=== PATIENT | female | born 1985 | race Hispanic/Latino ===

== ENCOUNTER 2017-12-24 09:48 | Emergency (ER) | payer SELFPAY | END 2017-12-24 10:13 | disposition home or self-care (01) | LOC: EDH 09:48 | DX: H10.89 Other conjunctivitis (principal); R03.0 Elevated blood-pressure reading, without diagnosis of hypertension; Z88.6 Allergy status to analgesic agent ==

== ENCOUNTER 2018-01-28 21:51 | Emergency (ER) | payer OTHER ==
[2018-01-28 22:55] LABS: BASOPHILS % (AUTO) 0.9 % (0.0-5.0); EOSINOPHILS % (AUTO) 2.7 % (0.0-8.0); HEMATOCRIT 39.7 % (36-48); LYMPHOCYTES % (AUTO) 32.9 % (21.0-51.0); MEAN CORPUSCULAR HEMOGLOBIN 29.5 pg (27.0-33.0); MEAN CORPUSCULAR HGB CONC 34.9 g/dL (32.0-36.0); MEAN CORPUSCULAR VOLUME 84.4 fL (79-99); MONOCYTES % (AUTO) 4.4 % (3.0-13.0); NEUTROPHILS % (AUTO) 59.1 % (40.0-77.0); PLATELET COUNT (AUTO) 295 K/uL (130-400); RED CELL DISTRIBUTION WIDTH 13.4 % (11.0-15.5); WHITE BLOOD COUNT (AUTO) 10.2 K/uL (4.8-10.8)
[2018-01-28] MEDS ORDERED: DEXAMETHASONE SOD PHOSPHATE 10MG/ML 1ML VIAL ONE (22:57)
[2018-01-28] MEDS ORDERED: KETOROLAC TROMETHAMINE 30MG/ML ONE (22:58)
[2018-01-28 23:10] LABS: CREATININE 0.8 mg/dL (0.5-1.5); CRP QUANTITATIVE 16.4 mg/L (0.00-9.0); POTASSIUM 3.5 mmol/L (3.5-5.1)
[2018-01-29 00:16] LABS: ERYTHROCYTE SEDIMENTATION RATE 10 MM/HR (0-15)
== END 2018-01-29 00:21 | disposition home or self-care (01) ==
LOC: EDH 21:51
DX: M79.642 Pain in left hand (principal); M79.641 Pain in right hand; Z88.6 Allergy status to analgesic agent; Z90.710 Acquired absence of both cervix and uterus
CPT/HCPCS: 36415; 80048; 84550; 85025; 85651; 86140; 96372 ×2; 99284; J1100; J1885

== ENCOUNTER 2019-09-23 18:41 | Emergency (ER) | payer OTHER | END 2019-09-23 21:07 | disposition home or self-care (01) | LOC: EDH 18:41 | DX: R07.89 Other chest pain (principal); M94.0 Chondrocostal junction syndrome [Tietze]; Z88.5 Allergy status to narcotic agent; Z90.710 Acquired absence of both cervix and uterus; Z87.891 Personal history of nicotine dependence | CPT/HCPCS: 36415; 71046; 84484; 85378; 93005 ==

== ENCOUNTER 2019-10-19 16:22 | Emergency (ER) | payer OTHER ==
[2019-10-19] MEDS ORDERED: LIDOCAINE 5% TOPICAL PATCH TP ONE (16:46)
[2019-10-19] MEDS ORDERED: KETOROLAC TROMETHAMINE 60 MG/2 ML VIAL ONE (16:46)
[2019-10-19] MEDS ORDERED: DIAZEPAM 5 MG TABLET ONE (16:47)
== END 2019-10-19 17:55 | disposition home or self-care (01) ==
LOC: EDH 16:22
DX: M54.16 Radiculopathy, lumbar region (principal); Z90.710 Acquired absence of both cervix and uterus; Z88.6 Allergy status to analgesic agent; Z87.891 Personal history of nicotine dependence
CPT/HCPCS: 96372; 99283; J1885

== ENCOUNTER 2020-01-29 07:29 | Emergency (ER) | payer BC ==
[2020-01-29 08:41] LABS: APPEARANCE,URINE Clear (CLEAR); BILIRUBIN,URINE Negative (NEGATIVE); COLOR,URINE Yellow (YELLOW); GLUCOSE, URINE (UA) Negative (NEGATIVE); KETONES,URINE Negative (NEGATIVE); LEUKOCYTE ESTERASE ,URINE Negative (NEGATIVE); NITRATE,URINE Negative (NEGATIVE); OCCULT BLOOD,URINE Negative (NEGATIVE); PH,URINE 6.5 (5.0-8.0); PROTEIN,URINE Negative (NEGATIVE); UROBILINOGEN,URINE 0.2 mg/dL (0.2-1.0)
[2020-01-29 08:48] LABS: HCG,QUAL RESULT NEGATIVE (NEGATIVE)
[2020-01-29] MEDS ORDERED: CEFTRIAXONE SODIUM 500 MG VIAL ONE (09:34)
[2020-01-29] MEDS ORDERED: LIDOCAINE HCL-MPF 1% 2ML VIAL ONE (09:34)
[2020-01-29] MEDS ORDERED: AZITHROMYCIN 250 MG TABLET PO ONE (09:35)
== END 2020-01-29 10:04 | disposition home or self-care (01) ==
LOC: EDH 07:29
DX: R30.0 Dysuria (principal); Z88.6 Allergy status to analgesic agent; Z90.49 Acquired absence of other specified parts of digestive tract; Z90.710 Acquired absence of both cervix and uterus
CPT/HCPCS: 81003; 81025; 87486; 87797; 96372; 99284; J0696; J3490

== ENCOUNTER 2020-05-24 14:41 | Emergency (ER) | payer BC | END 2020-05-24 16:31 | disposition home or self-care (01) | LOC: EDH 14:41 | DX: H65.01 Acute serous otitis media, right ear (principal); Z90.49 Acquired absence of other specified parts of digestive tract; Z90.710 Acquired absence of both cervix and uterus; Z98.890 Other specified postprocedural states; Z88.5 Allergy status to narcotic agent; Z91.040 Latex allergy status | CPT/HCPCS: 99281 ==

== ENCOUNTER 2021-05-28 18:34 | Emergency (ER) | payer BC, MEDICAID ==
[~2021-05-28] VITALS: Ht 157.5 cm; Wt 122.5 kg
[2021-05-28 18:46] VITALS: BP 140/95
[2021-05-28] MEDS ORDERED: ORPHENADRINE CITRATE 30 MG/ML ML IM ONE (19:00)
[2021-05-28] MEDS ORDERED: KETOROLAC 30MG VIAL (30MG/ML) IM ONE (19:00)
[2021-05-28 19:23] VITALS: BP 111/70
[2021-05-28] MEDS ORDERED: IBUP-2070 PO (19:49)
[2021-05-28] MEDS ORDERED: ORPH-43 PO (19:49)
== END 2021-05-28 20:17 | disposition home or self-care (01) ==
LOC: EDH 18:34
DX: S39.011A Strain of muscle, fascia and tendon of abdomen, initial encounter (principal); Z79.1 Long term (current) use of non-steroidal anti-inflammatories (NSAID); Z88.5 Allergy status to narcotic agent; Z91.040 Latex allergy status; X58.XXXA Exposure to other specified factors, initial encounter; Y93.89 Activity, other specified; Y92.89 Other specified places as the place of occurrence of the external cause; Y99.8 Other external cause status
CPT/HCPCS: 73502; 96372 ×2; 99284; J1885; J2360

== ENCOUNTER 2021-08-01 08:50 | Emergency (ER) | payer MEDICAID ==
[~2021-08-01] VITALS: Ht 157.5 cm; Wt 126.1 kg
[~2021-08-01 08:50] MED LIST: IBUP-2070 PO; ORPH-43 PO
[2021-08-01 09:02] VITALS: BP 147/100
[2021-08-01] MEDS ORDERED: ACETAMINOPHEN 500 MG TABLET PO ONE (09:30)
[2021-08-01 10:03] LABS: APPEARANCE,URINE Clear (CLEAR); BILIRUBIN,URINE Negative (NEGATIVE); COLOR,URINE Yellow (YELLOW); GLUCOSE, URINE (UA) Negative (NEGATIVE); KETONES,URINE Negative (NEGATIVE); LEUKOCYTE ESTERASE ,URINE Negative (NEGATIVE); NITRATE,URINE Negative (NEGATIVE); OCCULT BLOOD,URINE Negative (NEGATIVE); PH,URINE 7.5 (5.0-8.0); PROTEIN,URINE Negative (NEGATIVE); UROBILINOGEN,URINE 0.2 mg/dL (0.2-1.0)
[2021-08-01 10:14] LABS: AMPHET/METH SCREEN,URINE NEGATIVE (NEGATIVE); BARBITURATE SCREEN, URINE NEGATIVE (NEGATIVE); BENZODIAZEPINES SCREEN,URINE NEGATIVE (NEGATIVE); CANNABINOID SCREEN,URINE NEGATIVE (NEGATIVE); COCAINE SCREEN,URINE NEGATIVE (NEGATIVE); HCG,QUAL RESULT NEGATIVE (NEGATIVE); OPIATE SCREEN,URINE NEGATIVE (NEGATIVE); PHENCYCLIDINE SCREEN,URINE NEGATIVE (NEGATIVE)
[2021-08-01] MEDS ORDERED: CEPH500B PO (10:22)
== END 2021-08-01 10:39 | disposition home or self-care (01) ==
LOC: EDH 08:50
DX: N39.0 Urinary tract infection, site not specified (principal); F90.9 Attention-deficit hyperactivity disorder, unspecified type; Z88.5 Allergy status to narcotic agent; Z91.040 Latex allergy status; Z79.1 Long term (current) use of non-steroidal anti-inflammatories (NSAID)
CPT/HCPCS: 80305; 81003; 81025; 87077; 87088; 87186

== ENCOUNTER 2021-11-18 09:19 | Emergency (ER) | payer MEDICAID ==
[~2021-11-18] VITALS: Ht 157.5 cm; Wt 123.4 kg
[~2021-11-18 09:19] MED LIST changes: +CEPH500B PO
[2021-11-18 09:55] LABS: MEAN CORPUSCULAR HEMOGLOBIN 28.3 pg (27.0-33.0); MEAN CORPUSCULAR HGB CONC 33.3 g/dL (32.0-36.0); PLATELET COUNT (AUTO) 285 K/uL (130-400); RED BLOOD CELL COUNT(AUTO) 5.06 MIL/uL (4.00-5.50); RED CELL DISTRIBUTION WIDTH 13.2 % (11.0-15.5)
[2021-11-18 10:07] LABS: CREATININE 0.8 mg/dL (0.5-1.5); POTASSIUM 4.2 mmol/L (3.5-5.1)
[2021-11-18 10:10] LABS: APPEARANCE,URINE Clear (CLEAR); BILIRUBIN,URINE Negative (NEGATIVE); COLOR,URINE Yellow (YELLOW); GLUCOSE, URINE (UA) Negative (NEGATIVE); KETONES,URINE Negative (NEGATIVE); LEUKOCYTE ESTERASE ,URINE Small (NEGATIVE); NITRATE,URINE Negative (NEGATIVE); OCCULT BLOOD,URINE Negative (NEGATIVE); PROTEIN,URINE Negative (NEGATIVE); UROBILINOGEN,URINE 0.2 mg/dL (0.2-1.0)
[2021-11-18 10:12] LABS: ALBUMIN 3.4 g/dL (3.5-5.0); TOTAL PROTEIN, SERUM 6.8 g/dL (6.0-8.3)
[2021-11-18 10:23] LABS: BASOPHILS % (MANUAL) 2 % (0-2); EOSINOPHILS % (MANUAL) 1 % (1-6); LYMPHOCYTES % (MANUAL) 18 % (22-44); MAN.DIFF COMMENT-IMPRESSION MANUAL DIFFERENTIAL; MONOCYTES % (MANUAL) 2 % (2-9); PLATELET MORPHOLOGY COMMENT ADEQUATE; REACTIVE LYMPHOCYTES 3 % (0-0); SEGMENTED NEUTROPHILS % 74 % (40-70)
[2021-11-18 10:24] LABS: BACTERIA,URINE Few /HPF (None Seen); RBC,URINE 0-1 /HPF (0-1); TRICHOMONAS,URINE Few /LPF (None Seen)
[2021-11-18 10:25] LABS: SQUAMOUS EPITHELIAL CELL,UR Few /HPF (0-2)
[2021-11-18] MEDS ORDERED: CLOT45CR23 VG (14:16)
[2021-11-18] MEDS ORDERED: ONDANSETRON ODT 4MG TAB SL ONE (14:30)
[2021-11-18] MEDS: METRONIDAZOLE 500 MG TABLET PO SCH (14:30)
[2021-11-18 14:45] VITALS: BP 158/74
== END 2021-11-18 14:45 | disposition home or self-care (01) ==
LOC: EDH 09:19
DX: A59.01 Trichomonal vulvovaginitis (principal); B37.3 Candidiasis of vulva and vagina; R03.0 Elevated blood-pressure reading, without diagnosis of hypertension; Z88.5 Allergy status to narcotic agent; Z90.710 Acquired absence of both cervix and uterus; Z91.040 Latex allergy status; Z79.1 Long term (current) use of non-steroidal anti-inflammatories (NSAID)
CPT/HCPCS: 36415; 80053; 81001; 85025; 87210; 87486; 87797

== ENCOUNTER 2021-12-15 12:30 | Emergency (ER) | payer MEDICAID ==
[~2021-12-15] VITALS: Ht 157.5 cm; Wt 121.6 kg
[~2021-12-15 12:30] MED LIST changes: +CLOT45CR23 VG
[2021-12-15 12:53] LABS: APPEARANCE,URINE Cloudy (CLEAR); BILIRUBIN,URINE Negative (NEGATIVE); COLOR,URINE Yellow (YELLOW); GLUCOSE, URINE (UA) Negative (NEGATIVE); KETONES,URINE Negative (NEGATIVE); LEUKOCYTE ESTERASE ,URINE Large (NEGATIVE); NITRATE,URINE Negative (NEGATIVE); OCCULT BLOOD,URINE Small (NEGATIVE); PH,URINE 6.5 (5.0-8.0); PROTEIN,URINE POS 2+ mg/dL (NEGATIVE); UROBILINOGEN,URINE 0.2 mg/dL (0.2-1.0)
[2021-12-15 12:54] VITALS: BP 129/84
[2021-12-15] MEDS ORDERED: ONDANSETRON 4MG INJ IVP ONE (13:00)
[2021-12-15] MEDS ORDERED: 0.9%NACL 1000ML 1,000 ML IV ONE (13:00)
[2021-12-15 13:03] LABS: BACTERIA,URINE Rare /HPF (None Seen); SQUAMOUS EPITHELIAL CELL,UR Few /HPF (0-2); WBC,URINE >100 /HPF (0-1)
[2021-12-15 13:17] LABS: BASOPHILS % (AUTO) 0.5 % (0.0-5.0); EOSINOPHILS % (AUTO) 1.6 % (0.0-8.0); HEMATOCRIT 40.3 % (36-48); LYMPHOCYTES % (AUTO) 19.6 % (21.0-51.0); MEAN CORPUSCULAR HEMOGLOBIN 28.8 pg (27.0-33.0); MEAN CORPUSCULAR VOLUME 82.2 fL (79-99); MONOCYTES % (AUTO) 3.9 % (3.0-13.0); PLATELET COUNT (AUTO) 274 K/uL (130-400); RED CELL DISTRIBUTION WIDTH 13.2 % (11.0-15.5); WHITE BLOOD COUNT (AUTO) 10.4 K/uL (4.8-10.8)
[2021-12-15 13:21] LABS: CREATININE 0.8 mg/dL (0.5-1.5); POTASSIUM 3.7 mmol/L (3.5-5.1)
[2021-12-15 13:25] LABS: ALBUMIN 3.1 g/dL (3.5-5.0); BILIRUBIN,TOTAL 0.6 mg/dL (0.2-1.0); TOTAL PROTEIN, SERUM 6.3 g/dL (6.0-8.3)
[2021-12-15] MEDS ORDERED: CEFTRIAXONE 1G VIAL IVP SCH (13:30)
[2021-12-15] MEDS ORDERED: ONDA4TAB10 PO (13:49)
[2021-12-15] MEDS ORDERED: LACT10PA5 PO (13:49)
[2021-12-15] MEDS ORDERED: CEPH500B PO (13:49)
[2021-12-15] MEDS ORDERED: PHEN-847 PO (13:49)
== END 2021-12-15 14:09 | disposition home or self-care (01) ==
LOC: EDH 12:30
DX: N39.0 Urinary tract infection, site not specified (principal); N83.202 Unspecified ovarian cyst, left side; K59.00 Constipation, unspecified; R11.2 Nausea with vomiting, unspecified; E66.9 Obesity, unspecified; Z88.5 Allergy status to narcotic agent; Z90.49 Acquired absence of other specified parts of digestive tract; Z90.721 Acquired absence of ovaries, unilateral; Z91.040 Latex allergy status; Z79.1 Long term (current) use of non-steroidal anti-inflammatories (NSAID); Z68.42 Body mass index [BMI] 45.0-49.9, adult
CPT/HCPCS: 36415; 71045; 74176; 80053; 81001; 83690; 85025; 87077; 87088; 87186; 96374; 96375; 99285; J0696; J2405; J7030

== ENCOUNTER 2022-06-23 14:54 | Emergency (ER) | payer MEDICAID ==
[~2022-06-23] VITALS: Ht 157.5 cm; Wt 118.8 kg
[~2022-06-23 14:54] MED LIST changes: +LACT10PA5 PO; +ONDA4TAB10 PO; +PHEN-847 PO
[2022-06-23] MEDS ORDERED: SULF1TAB42 PO (15:34)
[2022-06-23] MEDS ORDERED: DOXY-252 PO (15:34)
[2022-06-23] MEDS ORDERED: IBUP-1493 PO (15:35)
[2022-06-23 16:08] VITALS: BP 138/68
== END 2022-06-23 16:12 | disposition home or self-care (01) ==
LOC: EDH 14:54
DX: L03.116 Cellulitis of left lower limb (principal); F90.9 Attention-deficit hyperactivity disorder, unspecified type; Z98.890 Other specified postprocedural states; Z79.899 Other long term (current) drug therapy; Z91.040 Latex allergy status; Z88.5 Allergy status to narcotic agent; Z88.8 Allergy status to other drugs, medicaments and biological substances

== ENCOUNTER 2022-11-26 21:09 | Emergency (ER) | payer MEDICAID ==
[~2022-11-26] VITALS: Ht 157.5 cm; Wt 118.2 kg
[~2022-11-26 21:09] MED LIST changes: +DOXY-252 PO; +IBUP-1493 PO; +SULF1TAB42 PO
[2022-11-26 21:42] LABS: APPEARANCE,URINE CLEAR (CLEAR); BILIRUBIN,URINE NEGATIVE (NEGATIVE); COLOR,URINE COLORLESS (YELLOW); GLUCOSE, URINE (UA) NEGATIVE (NEGATIVE); KETONES,URINE NEGATIVE (NEGATIVE); LEUKOCYTE ESTERASE ,URINE NEGATIVE Leu/uL (NEGATIVE); NITRATE,URINE NEGATIVE (NEGATIVE); OCCULT BLOOD,URINE NEGATIVE (NEGATIVE); PROTEIN,URINE NEGATIVE (NEGATIVE); UROBILINOGEN,URINE 0.2 mg/dL (0.2-1.0)
[2022-11-26 21:50] LABS: BACTERIA,URINE RARE /HPF (None Seen); RBC,URINE 0-1 /HPF (0-1); SQUAMOUS EPITHELIAL CELL,UR RARE /HPF (0-2); WBC,URINE 0-1 /HPF (0-1)
[2022-11-26] MEDS ORDERED: KETOROLAC 30MG VIAL (30MG/ML) IVP ONE (22:30)
[2022-11-26] MEDS ORDERED: CYCL-309 PO (23:24)
[2022-11-26] MEDS ORDERED: IBUP-1493 PO (23:24)
[2022-11-27 00:29] VITALS: BP 112/48
== END 2022-11-27 00:47 | disposition home or self-care (01) ==
LOC: EDH 21:09
DX: R10.9 Unspecified abdominal pain (principal); E66.9 Obesity, unspecified; Z79.1 Long term (current) use of non-steroidal anti-inflammatories (NSAID); Z88.5 Allergy status to narcotic agent; Z91.040 Latex allergy status; Z90.710 Acquired absence of both cervix and uterus; Z68.42 Body mass index [BMI] 45.0-49.9, adult
CPT/HCPCS: 99285; 74176; 96374; 81001; 81025; J1885

== ENCOUNTER 2022-12-21 14:08 | Emergency (ER) | payer MEDICAID ==
[~2022-12-21] VITALS: Ht 157.5 cm; Wt 117.9 kg
[~2022-12-21 14:08] MED LIST changes: -CEPH500B PO; -CLOT45CR23 VG; +CYCL-309 PO; -DOXY-252 PO; -IBUP-2070 PO; -LACT10PA5 PO; -ONDA4TAB10 PO; -ORPH-43 PO; -PHEN-847 PO; -SULF1TAB42 PO
[2022-12-21 14:41] LABS: BASOPHILS % (AUTO) 0.1 % (0.0-5.0); EOSINOPHILS % (AUTO) 1.6 % (0.0-8.0); HEMATOCRIT 44.4 % (36-48); MEAN CORPUSCULAR HEMOGLOBIN 28.1 pg (27.0-33.0); MEAN CORPUSCULAR HGB CONC 34.2 g/dL (32.0-36.0); MEAN CORPUSCULAR VOLUME 82.1 fL (79-99); MONOCYTES % (AUTO) 3.9 % (3.0-13.0); NEUTROPHILS % (AUTO) 82.1 % (40.0-77.0); PLATELET COUNT (AUTO) 294 K/uL (130-400); RED BLOOD CELL COUNT(AUTO) 5.41 MIL/uL (4.00-5.50); RED CELL DISTRIBUTION WIDTH 12.6 % (11.0-15.5); WHITE BLOOD COUNT (AUTO) 7.6 K/uL (4.8-10.8)
[2022-12-21 14:47] LABS: HCG,QUALITATIVE URINE NEGATIVE (NEGATIVE)
[2022-12-21 14:55] LABS: CREATININE 0.7 mg/dL (0.5-1.5); POTASSIUM 3.7 mmol/L (3.5-5.1)
[2022-12-21 14:59] LABS: ALBUMIN 3.4 g/dL (3.5-5.0); TOTAL PROTEIN, SERUM 7.1 g/dL (6.0-8.3)
[2022-12-21 15:18] LABS: APPEARANCE,URINE CLEAR (CLEAR); BILIRUBIN,URINE NEGATIVE (NEGATIVE); COLOR,URINE LIGHT-YELLOW (YELLOW); GLUCOSE, URINE (UA) NEGATIVE (NEGATIVE); KETONES,URINE NEGATIVE (NEGATIVE); LEUKOCYTE ESTERASE ,URINE NEGATIVE Leu/uL (NEGATIVE); NITRATE,URINE NEGATIVE (NEGATIVE); OCCULT BLOOD,URINE NEGATIVE (NEGATIVE); PH,URINE 6.5 (5.0-8.0); PROTEIN,URINE NEGATIVE (NEGATIVE); UROBILINOGEN,URINE 0.2 mg/dL (0.2-1.0)
[2022-12-21 15:24] LABS: BACTERIA,URINE FEW /HPF (None Seen); RBC,URINE 0-1 /HPF (0-1); SQUAMOUS EPITHELIAL CELL,UR RARE /HPF (0-2); WBC,URINE 0-1 /HPF (0-1)
[2022-12-21] MEDS ORDERED: MAG/ALUM/SIMETH 30 ML UDCUP ONE (17:32)
[2022-12-21] MEDS ORDERED: LIDOCAINE HCL 2% VISCOUS 15 ML UDCUP ONE (17:32)
[2022-12-21 18:00] VITALS: BP 109/51
[2022-12-21] MEDS ORDERED: MAG/ALUM/SIMETH 30 ML UDCUP PO ONE (18:00)
[2022-12-21] MEDS ORDERED: DICYCLOMINE HCL 10 MG/5 ML ML PO ONE (18:00)
[2022-12-21] MEDS ORDERED: LIDOCAINE HCL 2% VISCOUS 15 ML UDCUP PO ONE (18:00)
== END 2022-12-21 18:20 | disposition home or self-care (01) ==
LOC: EDH 14:08
DX: K52.9 Noninfective gastroenteritis and colitis, unspecified (principal); Z90.710 Acquired absence of both cervix and uterus
CPT/HCPCS: 36415; 74018; 80053; 81001; 81025; 83690; 85025

== ENCOUNTER 2023-05-16 10:41 | Emergency (ER) | payer MEDICAID, OTHER ==
[~2023-05-16] VITALS: Ht 157.5 cm; Wt 122.5 kg
[2023-05-16 10:55] VITALS: BP 175/96; PULSE 85; RESP 16
[2023-05-16 12:15] LABS: SARS-CoV-2, RNA, NAAT NEGATIVE SARS CoV-2 (NEGATIVE)
[2023-05-16 12:21] LABS: INFLUENZA TYPE A Negative For Type A (NEGATIVE); INFLUENZA TYPE B Negative For Type B (NEGATIVE)
[2023-05-17] MEDS ORDERED: SUMA25TA25 PO (12:40)
[2023-05-17] MEDS ORDERED: METO-296 PO (12:40)
== END 2023-05-16 14:09 | disposition left against medical advice (07) ==
LOC: EDH 10:41
DX: R51.9 Headache, unspecified (principal); Z20.822 Contact with and (suspected) exposure to COVID-19; Z53.21 Procedure and treatment not carried out due to patient leaving prior to being seen by health care provider
CPT/HCPCS: 99281; 87635; 87804 ×2; C9803

== ENCOUNTER 2023-05-17 08:47 | Emergency (ER) | payer OTHER ==
[~2023-05-17] VITALS: Ht 157.5 cm; Wt 124.7 kg
[2023-05-17] MEDS ORDERED: KETOROLAC 30MG VIAL (30MG/ML) IVP ONE (09:30)
[2023-05-17] MEDS ORDERED: FAMOTIDINE 20MG VIAL IV ONE (09:30)
[2023-05-17] MEDS ORDERED: DEXAMETHASONE SOD PHOSPHATE 4 MG/ML 1ML VIAL IV ONE (09:30)
[2023-05-17] MEDS ORDERED: METOCLOPRAMIDE 10 MG/2 ML VIAL IVP ONE (09:30)
[2023-05-17 09:56] LABS: BASOPHILS # (AUTO) 0.02 K/uL (0.00-0.20); BASOPHILS % (AUTO) 0.3 % (0.0-5.0); EOSINOPHILS # (AUTO) 0.12 K/uL (0.00-0.70); EOSINOPHILS % (AUTO) 1.5 % (0.0-8.0); HEMATOCRIT 43.6 % (36-48); IMMATURE GRANULOCYTE ABSOLUTE 0.04 K/uL (0-1); MEAN CORPUSCULAR HEMOGLOBIN 28.4 pg (27.0-33.0); MEAN CORPUSCULAR HGB CONC 33.7 g/dL (32.0-36.0); MEAN CORPUSCULAR VOLUME 84.2 fL (79-99); MONOCYTES # (AUTO) 0.3 K/uL (0.1-1.0); MONOCYTES % (AUTO) 3.3 % (3.0-13.0); NEUTROPHILS # (AUTO) 5.3 K/uL (1.8-7.7); NEUTROPHILS % (AUTO) 68.4 % (40.0-77.0); PLATELET COUNT (AUTO) 295 K/uL (130-400); RED BLOOD CELL COUNT(AUTO) 5.18 MIL/uL (4.00-5.50); RED CELL DISTRIBUTION WIDTH 12.5 % (11.0-15.5); WHITE BLOOD COUNT (AUTO) 7.8 K/uL (4.8-10.8)
[2023-05-17 10:07] LABS: CREATININE 0.7 mg/dL (0.5-1.5); POTASSIUM 3.9 mmol/L (3.5-5.1)
[2023-05-17 10:22] LABS: MAGNESIUM 1.7 mg/dL (1.80-2.40); THYROID STIMULATING HORMONE 2.08 uIU/mL (0.36-3.74)
[2023-05-17 10:33] LABS: AMPHET/METH SCREEN,URINE NEGATIVE (NEGATIVE); BARBITURATE SCREEN, URINE NEGATIVE (NEGATIVE); BENZODIAZEPINES SCREEN,URINE NEGATIVE (NEGATIVE); CANNABINOID SCREEN,URINE NEGATIVE (NEGATIVE); COCAINE SCREEN,URINE NEGATIVE (NEGATIVE); OPIATE SCREEN,URINE NEGATIVE (NEGATIVE); PHENCYCLIDINE SCREEN,URINE NEGATIVE (NEGATIVE)
[2023-05-17 10:41] LABS: APPEARANCE,URINE CLEAR (CLEAR); BILIRUBIN,URINE NEGATIVE (NEGATIVE); COLOR,URINE COLORLESS (YELLOW); GLUCOSE, URINE (UA) NEGATIVE (NEGATIVE); KETONES,URINE NEGATIVE (NEGATIVE); LEUKOCYTE ESTERASE ,URINE NEGATIVE Leu/uL (NEGATIVE); NITRATE,URINE NEGATIVE (NEGATIVE); OCCULT BLOOD,URINE NEGATIVE (NEGATIVE); PH,URINE 6.5 (5.0-8.0); PROTEIN,URINE NEGATIVE (NEGATIVE); UROBILINOGEN,URINE 0.2 mg/dL (0.2-1.0)
[2023-05-17 10:46] LABS: ADD UA MICROSCOPIC NO
[2023-05-17] MEDS ORDERED: MAGNESIUM OXIDE 400 MG TABLET PO ONE (12:30)
[2023-05-17] MEDS ORDERED: METO-296 PO (12:40)
[2023-05-17] MEDS ORDERED: SUMA25TA25 PO (12:40)
[2023-05-17 12:42] VITALS: BP 121/72; PULSE 72; RESP 18; O2SAT 99
== END 2023-05-17 12:58 | disposition home or self-care (01) ==
LOC: EDH 08:47
DX: G43.909 Migraine, unspecified, not intractable, without status migrainosus (principal); I16.1 Hypertensive emergency; E83.42 Hypomagnesemia; E66.01 Morbid (severe) obesity due to excess calories; Z68.43 Body mass index [BMI] 50.0-59.9, adult; Z90.49 Acquired absence of other specified parts of digestive tract; Z90.721 Acquired absence of ovaries, unilateral; Z90.710 Acquired absence of both cervix and uterus; Z98.890 Other specified postprocedural states; Z79.899 Other long term (current) drug therapy; Z88.5 Allergy status to narcotic agent; Z91.040 Latex allergy status
CPT/HCPCS: 99285; 96374; 96375; 70450; 84443; 83735; 80048; 80305; 84703; 85025; 36415; 81003; J1100; J3490; J1885; J2765

== ENCOUNTER 2024-09-04 18:44 | Emergency (ER) | payer BC, MEDICAID ==
[~2024-09-04] VITALS: Ht 157.5 cm; Wt 126.1 kg
[~2024-09-04 18:44] MED LIST changes: +METO-296 PO; +SUMA25TA25 PO
[2024-09-04] MEDS ORDERED: ORPHENADRINE 60MG/2ML IM ONE (19:30)
--- NOTE | 2024-09-04 20:33 | ERN ---
General Chief Complaint: Lower Extremity Pain/Injury Stated Complaint: RIGHT CALF PAIN AND RIGHT KNEE PAIN Time Seen by MD: 19:10 Source: patient History of Present Illness Initial Comments 38-year-old female coming in to be evaluated for right lower extremity pain. Patient states that she has had lower left extremity pain and was evaluated by PCP. Patient states that now her right lower extremity has been tenderness concerned for blood clots. Patient is able to ambulate with minimal discomfort. Allergies: Coded Allergies: Latex, Natural Rubber (Unverified Allergy, Unknown, 05/24/20) bimatoprost (Unverified Allergy, Unknown, 05/24/20) codeine (Unverified Allergy, Unknown, 09/23/19) Home Meds Active Scripts Metoclopramide HCl (Reglan) 10 Mg Tablet, 10 MG PO QIDP PRN for HEADACHE, #30 TAB 2 Refills Prov:PRABHU OCHOA Sr., MD 05/17/23 Sumatriptan Succinate (Imitrex) 25 Mg Tablet, 25 MG PO AD PRN for HEADACHE, #15 TAB 2 Refills Once Daily in the event you experience a Migraine Headache Prov:PRABHU OCHOA Sr., MD 05/17/23 Cyclobenzaprine HCl (Cyclobenzaprine HCl) 10 Mg Tablet, 10 MG PO TIDP PRN for PAIN, #30 TAB Prov:CLARKE DENISE MD 11/26/22 Ibuprofen (Motrin/Advil) 800 Mg Tab, 800 MG PO TID, #30 TAB Prov:CLARKE DENISE MD 11/26/22 Past Medical History Past Medical History: Diabetes-Type II, Hypertension Medical History Other: ADHD, obesity Past Surgical History: Hysterectomy, Cholecystectomy, Surgical History Other: 1 OVARY REMOVED Family History Family History: Negative Social History Social History: Negative Female( History) History: Not Applicable ROS Dictation CONSTITUTIONAL: No chills, no fever, no weakness, no diaphoresis, no malaise. HEAD/FACE: No signs of trauma. EENT: No eye pain, no blurred vision, no tearing, no double vision, no ear pain, no ear discharge, no nose pain, no nasal congestion, no throat pain, no throat swelling, no mouth pain. RESPIRATORY: No cough, no orthopnea, no SOB, no stridor, no wheezing. CARDIOVASCULAR: No chest pain, no edema, no palpitations, no syncope. GASTROINTESTINAL/ABDOMINAL: No abdominal pain, no constipation, no diarrhea, no nausea, no vomiting. GENITOURINARY: No abnormal discharge, no dysuria, no frequent urination, no hematuria. No complaints of pain in the genitals. MUSCULOSKELETAL: No back pain, no gout, joint pain, no joint swelling, muscle pain, no muscle stiffness, no neck pain. INTEGUMENTARY: No change in color, no change in hair/nails, no dryness, no lesion, no lumps, no rash. NEUROLOGICAL/PSYCH: No anxiety, not depressed, no emotional problem, no headache, no numbness, no pre-existing deficit, no history of seizures, no tremors, no weakness. HEMATOLOGIC/LYMPHATIC: Not anemic, no history of blood clots, no apparent bleeding, no bruising, glands not swollen. All Systems Negative, Except as Noted. Physical Exam Physical Exam Dictation VITAL SIGNS: Reviewed. GENERAL APPEARANCE: Alert, oriented x3, no acute distress, obese. HEAD AND FACE: Non-traumatic. EYES: PERRL, pink conjunctivas, eyelid no trauma, anterior chamber clear. EARS: Pinnas intact and no signs of trauma or erythema. Ear canals clear and no discharge. TMs no erythema. NOSE: No discharge, no bleeding. OROPHARYNX: Mouth normal, teeth no caries, tongue pink. Pharynx clear, no erythema. Tonsils no exudates, no abscesses noted. Mucous membrane moist. NECK: Supple, non-tender, no thyromegaly, no masses, no JVD, no bruits. BREAST: Deferred. CHEST: No tenderness, no crepitus, no paradoxical movement, no retractions. LUNGS: Clear, well-ventilated, symmetric, no rales, no wheezing, no rhonchi, no stridor, good breath sounds bilaterally. HEART: Regular rate, regular rhythm, no murmur, no gallops. VASCULAR: No peripheral edema. ABDOMEN: Soft, positive bowel sounds, nondistended, no guarding, nontender, no rebound, no masses no hepatomegaly, no splenomegaly, no Galdamez's sign, no hernias. RECTAL: Deferred. GENITAL: Deferred. NEUROLOGICAL: Normal speech, gross motor function intact, gross sensory function intact. MUSCULOSKELETAL: Neck nontender, full range of motion, back nontender, full range of motion. EXTREMITIES: Nontender, full range of motion. Right calf tenderness on palpation posteriorly SKIN: Color pink, dry, no turgor, no rash, no lacerations, no abrasions, no contusions. LYMPHATICS: Deferred. Results Laboratory and Microbiology Labs Reviewed?: Yes EKG/XRAY/US/CT/MRI Ultrasound Comment Ultrasound lower extremity venous-NAD MDM MDM: Differential diagnosis: DVT, muscle strain, osteoarthritis, Patient is a 38-year-old female coming in to be evaluated for right lower extremity pain. Patient was concerned she might has a clot. Ultrasound did not confirm a clot. Patient will be discharged with a diagnosis of muscle strain and osteoarthritis. ED Course Orders Procedure Category Date Status Time Orphenadrine Citrate PHA 09/04/24 Complete (Norflex) 19:30 Acetaminophen 500mg PHA 09/04/24 Complete Tab (Tylenol 500mg T 19:30 Us Venous Doppler US 09/04/24 Resulted Unilateral 19:35 Current Medications Medications (Trade) Dose Ordered Sig/Robert Route PRN Reason Start Time Stop Time Status Last Admin Dose Admin Acetaminophen (TYLenol 500MG TAB) 1,000 mg ONCE ONCE PO 09/04/24 19:30 09/04/24 19:31 DC Orphenadrine Citrate (Norflex) 60 mg ONCE ONCE IM 09/04/24 19:30 09/04/24 19:26 DC Vital Signs Date Time Temp Pulse Resp B/P (MAP) Pulse Ox O2 Delivery O2 Flow Rate FiO2 09/04/24 18:46 98.8 93 18 129/68 99 Room Air 0 DX & DISP Disposition: Discharge Departure Impression: Primary Impression: Muscle strain Additional Impression: Osteoarthritis Condition: Stable Scripts Naproxen (Naproxen) 375 Mg Tablet. 375 MG PO BID for 10 Days, #20 TAB Prov: KATEY GRUBER MD 09/04/24 Additional Instructions: FOLLOW-UP WITH PRIMARY CARE PROVIDER IN 1 TO 2 DAYS. TAKE MEDICATIONS DIRECTED HERE IN THE EMERGENCY ROOM. OKAY TO CONTINUE HOME MEDICATIONS UNLESS OTHERWISE DISCUSSED DURING YOUR VISIT IN THE EMERGENCY ROOM TODAY. RETURN TO YOUR NEAREST EMERGENCY ROOM IF SYMPTOMS WORSEN OR IF THERE IS NO IMPROVEMENT. CALL 911 IF YOU NEED IMMEDIATE ASSISTANCE. TAKE TYLENOL [id number] NEEDED AND IF NO CONTRAINDICATIONS ARE PRESENT. INCREASE ORAL HYDRATION. A WOUND CULTURE OR URINE CULTURE WAS ORDERED HERE IN THE EMERGENCY ROOM DEPARTMENT PLEASE FOLLOW-UP WITH PRIMARY CARE PROVIDER AND ADVISE THEM TO GET REPEAT PORTS FROM OUR FACILITY. IF YOU HAD ANY GREGG WRAP/SPLINTS THAT WERE APPLIED HERE, PLEASE DO NOT REMOVE THEM UNTIL YOU SEE YOUR PRIMARY CARE OR SPECIALTY. Referrals: Referrals: CATIE LEIGH NP (PCP) Time of Disposition: 21:07 KATEY GRUBER MD Sep 04, 2024 20:33
--- NOTE | 2024-09-04 21:03 | HMCIMG ---
US VENOUS DOPPLER UNILATERAL REASON: right COMPARISON: None Technique: Right venous doppler ultrasound was performed with spectral analysis and color flow imaging technique. FINDINGS: There is a normal appearance of the common femoral, deep femoral, the profunda femoris and popliteal veins. Proximal calf veins appear normal as well. There is normal response to compression and augmentation. There is no evidence of deep venous thrombosis. IMPRESSION: Normal right lower extremity venous Doppler ultrasound.
[2024-09-04] MEDS ORDERED: NAPR-1505 PO (21:07)
--- NOTE | 2024-09-04 21:41 | NUR ---
PT ARRIVED FT AT THIS TIME
[2024-09-04] MEDS: acetaMINOPHEN 500 MG TABLET PO ONE (22:20)
[2024-09-04] MEDS: ORPHENADRINE 60MG/2ML ONE (22:22)
[2024-09-04 22:23] VITALS: BP 125/65; PULSE 90; RESP 16; TEMP 98.3; O2SAT 98
== END 2024-09-04 22:31 | disposition home or self-care (01) ==
LOC: EDH 18:44
DX: S86.811A Strain of other muscle(s) and tendon(s) at lower leg level, right leg, initial encounter (principal); M19.90 Unspecified osteoarthritis, unspecified site; E11.9 Type 2 diabetes mellitus without complications; E66.9 Obesity, unspecified; I10 Essential (primary) hypertension; Z79.1 Long term (current) use of non-steroidal anti-inflammatories (NSAID); Z88.5 Allergy status to narcotic agent; Z90.49 Acquired absence of other specified parts of digestive tract; Z90.710 Acquired absence of both cervix and uterus; Z90.721 Acquired absence of ovaries, unilateral; Z91.040 Latex allergy status; Z98.890 Other specified postprocedural states; X58.XXXA Exposure to other specified factors, initial encounter; Y93.89 Activity, other specified; Y92.89 Other specified places as the place of occurrence of the external cause; Y99.8 Other external cause status
CPT/HCPCS: 93971; 99284; J2360